=== PATIENT | female | born 1990 | race American Indian/Alaskan Native ===

== ENCOUNTER 2019-03-31 13:03 | Emergency (ER) | payer MEDICAID ==
--- NOTE | 2019-03-31 13:49 | Emergency Department Report ---
Blank Doc - Documentation Documentation: 28-year-old female that presents with no heartas per OBGYN. WAs sent by her OB. Denies any vaginal bleeding. Stated is about 15 weeks . This initial assessment/diagnostic orders/clinical plan/treatment(s) is/are subject to change based on patient's health status, clinical progression and re- assessment by fellow clinical providers in the ED. Further treatment and workup at subsequent clinical providers discretion. Patient/guardians urged not to elope from the ED as their condition may be serious if not clinically assessed and managed. Initial orders include: 1- Patient sent to [facility] for further evaluation and treatment 2- labs 3- UA 4- US OB
--- NOTE | 2019-03-31 15:08 | Ultrasound Report ---
OBSTETRIC ULTRASOUND INDICATION: heart tones could not be detected COMPARISON: No prior relevant imaging studies are available for comparison. TECHNIQUE: Transabdominal imaging was performed. FINDINGS: Single viable intrauterine is identified. lie: Cephalic. Heart rate: Could not be detected. measurements are as follows: Biparietal diameter 2.3 cm, 13 weeks 6 days Head circumference 9.0 cm, 14 weeks 0 days Abdominal circumference 6.10 cm, 12 weeks 6 days Femur length 1.4 cm, 14 weeks 0 days Amniotic fluid index is subjectively within normal limits. Cervix appears closed measuring 4-5 cm. Th ere is a grade 0 anterior placenta. CONCLUSION: 1. No cardiac activity could be detected. 2. Measurements as above. Signer Name: Frankie Duenas MD Signed: 03/31/2019 3:04 PM Workstation Name: [id number]
--- NOTE | 2019-03-31 18:37 | Emergency Department Report ---
ED HPI - General Chief complaint: OB/Uterine Contractions Stated complaint: TEST Time Seen by Provider: 03/31/19 13:47 Source: patient Mode of arrival: Ambulatory Limitations: No Limitations - History of Present Illness Initial comments: This is a 28-year-old female 010 who female who was sent by her LOCAL DELIVERY TRUCK DRIVER for no heart tones on doppler. Patient states her last menstrual cycle as 12/04/2018 at approximately 15 weeks gestation. Patient receives care [facility]. Patient denies fevers/chills/abdominal pain/vaginal bleeding, vaginal discharge, dysuria or any other symptoms - Related Data Allergies Allergy/AdvReac Type Severity Reaction Status Date / Time acetaminophen [From Percocet] Allergy Hives Verified 03/31/19 13:47 oxycodone [From Percocet] Allergy Hives Verified 03/31/19 13:47 ED Review of Systems ROS: Stated complaint: TEST Other details as noted in HPI Comment: All other systems reviewed and negative ED Past Medical Hx - Past Medical History Previous Medical History?: Yes Hx Hypertension: No Hx CVA: No Hx Heart Attack/AMI: No Hx Congestive Heart Failure: No Hx Diabetes: No Hx Deep Vein Thrombosis: No Hx Pulmonary Embolism: No Hx GERD: No Hx Liver Disease: No Hx Renal Disease: No Hx of Cancer: No Hx Sickle Cell Disease: No Hx Arthritis: No Hx Headaches / Migraines: No Hx Seizures: No Hx Kidney Stones: No Hx Psychiatric Treatment: No Hx Asthma: No Hx COPD: No Hx Tuberculosis: No Hx Dementia: No Hx HIV: No - Surgical History Past Surgical History?: No Hx Coronary Stent: No Hx Open Heart Surgery: No Hx Pacemaker: No Hx Internal Defibrillator: No Hx Cholecystectomy: No Hx Appendectomy: No Hx Breast Surgery: No - Social History Smoking Status: Never Smoker Substance Use Type: None ED Physical Exam - General Limitations: No Limitations General appearance: alert, in no apparent distress - Head Head exam: Present: atraumatic, normocephalic - Eye Eye exam: Present: normal appearance - ENT ENT exam: Present: mucous membranes moist - Neck Neck exam: Present: normal inspection - Respiratory Respiratory exam: Present: normal lung sounds bilaterally. Absent: respiratory distress - Cardiovascular Cardiovascular Exam: Present: regular rate, normal rhythm. Absent: systolic murmur, diastolic murmur, rubs, gallop - GI/Abdominal GI/Abdominal exam: Present: soft, normal bowel sounds. Absent: distended, tenderness, guarding, mass - Extremities Exam Extremities exam: Present: normal inspection - Back Exam Back exam: Present: normal inspection, full ROM. Absent: tenderness, CVA tenderness (R), CVA tenderness (L) - Neurological Exam Neurological exam: Present: alert, oriented X3 - Psychiatric Psychiatric exam: Present: normal affect, normal mood - Skin Skin exam: Present: warm, dry, intact, normal color. Absent: rash ED Course Vital Signs 03/31/19 03/31/19 13:10 18:54 Temperature 98.6 F Pulse Rate 96 H 89 Respiratory 18 16 Rate Blood Pressure 118/70 Blood Pressure 120/74 [Left] O2 Sat by Pulse 100 100 Oximetry ED Medical Decision Making - Radiology Data Radiology results: report reviewed, image reviewed OBSTETRIC ULTRASOUND INDICATION: heart tones could not be detected COMPARISON: No prior relevant imaging studies are available for comparison. TECHNIQUE: Transabdominal imaging was performed. FINDINGS: Single viable intrauterine is identified. lie: Cephalic. Heart rate: Could not be detected. measurements are as follows: Biparietal diameter 2.3 cm, 13 weeks 6 days Head circumference 9.0 cm, 14 weeks 0 days Abdominal circumference 6.10 cm, 12 weeks 6 days Femur length 1.4 cm, 14 weeks 0 days Amniotic fluid index is subjectively within normal limits. Cervix appears closed measuring 4-5 cm. There is a grade 0 anterior placenta. CONCLUSION: 1. No cardiac activity could be detected. 2. Measurements as above. Signer Name: Frankie Duenas MD Signed: 03/31/2019 3:04 PM Workstation Name: [id number] Transcribed By: FIORELLA Dictated By: Frankie Duenas MD Electronically Authenticated By: Frankie Duenas MD Signed Date/Time: 03/31/19 1504 - Medical Decision Making 28-year-old female presents with demise. Ultrasound shows no heart tone at [address] Abelardo CAMERON immigration coordinator was consulted and states patient should follow-up with the LOCAL DELIVERY TRUCK DRIVER tomorrow. She is in no acute distress. Patient has no vaginal bleeding or pelvic pain at this time. She understands all instructions. quantitative was 334. I discussed all findings with the patient and discussed with the patient to follow-up with LOCAL DELIVERY TRUCK DRIVER tomorrow. Critical care attestation.: If time is entered above; I have spent that time in minutes in the direct care of this critically ill patient, excluding procedure time. ED Disposition Clinical Impression: demise Disposition: DC- TO HOME OR SELFCARE Is pt being admited?: No Does the pt Need Aspirin: No Condition: Stable Instructions: Spontaneous Miscarriage (ED) Additional Instructions: Make sure to follow up with the LOCAL DELIVERY TRUCK DRIVER as discussed. Sure you call your OB tomorrow to be seen. Take all your medications as you've been prescribed. If you have any worsening symptoms or develop new symptoms please return to ED immediately. Referrals: [facility] [Other] - 3-5 Days [facility] [Provider Group] - 3-5 Days [facility] [Provider Group] - 3-5 Days Forms: Accompanied Note, Work/School Release Form(ED) Time of Disposition: 18:44
[2019-03-31 18:56] VITALS: BP 120/74
[2019-03-31 18:57] LABS: Amorphous Crystals,Urine Few; Bacteria,Urine 1+ /HPF (Negative); Bilirubin,Urine NEG (Negative); Blood,Urine NEG (Negative); Color,Urine Yellow (Yellow); Mucus,Urine FEW /HPF; Protein,Urine <15 mg/dL mg/dL (Negative); Urobilinogen,Urine < 2.0 mg/dL (<2.0)
== END 2019-03-31 18:54 | disposition home or self-care (01) ==
LOC: ED 13:03
DX: O36.4XX0 Maternal care for intrauterine death, not applicable or unspecified (principal); Z3A.14 14 weeks gestation of pregnancy; Z88.6 Allergy status to analgesic agent; Z88.5 Allergy status to narcotic agent
CPT/HCPCS: 36415; 76805; 81001; 84702

== ENCOUNTER 2019-12-25 18:43 | Outpatient (CLI) | payer MEDICAID ==
[2019-12-25 19:54] VITALS: BP 127/77
== END 2019-12-25 21:11 | disposition home or self-care (01) ==
LOC: TRG 18:43 → APU 18:43 → TRG 21:11
PROVIDERS: ATTEND Obstetrics & Gynecology
DX: O42.913 Preterm premature rupture of membranes, unspecified as to length of time between rupture and onset of labor, third trimester (principal); Z3A.32 32 weeks gestation of pregnancy
CPT/HCPCS: 59025